=== PATIENT | female | born 1970 | race Hispanic/Latino ===

== ENCOUNTER 2021-02-28 15:07 | Outpatient (CLI) | payer BC | END 2021-02-28 15:08 | disposition home or self-care (01) | LOC: BICRAD 15:07 | PROVIDERS: ATTEND Family Medicine | DX: M25.511 Pain in right shoulder (principal); M54.50 Low back pain, unspecified | CPT/HCPCS: 72100 ==

== ENCOUNTER 2021-02-28 15:30 | Outpatient (CLI) | payer BC | END 2021-02-28 15:31 | disposition home or self-care (01) | LOC: BICMAMMO 15:30 | PROVIDERS: ATTEND Family Medicine | DX: Z12.31 Encounter for screening mammogram for malignant neoplasm of breast (principal) | CPT/HCPCS: 77063; 77067 ==

== ENCOUNTER 2023-03-08 06:01 | Emergency (ER) | payer BC ==
[2023-03-08 06:30] LABS: #Eosinphils 0.1 thou/uL (0.0-0.7); #Monocytes 0.3 thou/uL (0.11-0.59); #Neutrophils 3.6 thou/uL (1.40-6.50); %Basophils 0.4 % (0.0-1.0); %Eosinophils 1.9 % (0.0-10.0); %Lymphocytes 21.2 % (21.0-51.0); %Monocytes 6.4 % (0.0-10.0); %Neutrophils 69.9 % (42.0-75.0); Hematocrit 45.4 % (36.0-47.0); Hemoglobin 15.7 g/dL (12.0-16.0); Mean Corpuscular HGB CONC 34.6 g/dL (32.0-36.0); Mean Corpuscular Hemoglobin 31.2 pg (27.0-31.0); Mean Corpuscular Volume 90.1 fl (78.0-98.0); Mean Platelet Volume 9.3 fL (7.4-10.4); Platelet Count 255 10x3/uL (130-400); Red Blood Cell (RBC) Count 5.04 mill/uL (4.20-5.40); White Blood Cell (WBC) Count 5.2 10x3/uL (4.8-10.8)
[2023-03-08 06:52] LABS: ALT (SGPT) 40 U/L (8-55); AST (SGOT) 32 U/L (5-34); Albumin 4.2 g/dL (3.5-5.0); Alkaline Phosphatase 82 U/L (40-110); Anion Gap 12 mmol/L (10-20); BUN (Urea Nitrogen) 16 mg/dL (9.8-20.1); Bilirubin, Total 0.5 mg/dL (0.2-1.2); Calc. Creatinine Clearance 0 mL/min (70-130); Calcium 9.5 mg/dL (7.8-10.44); Carbon Dioxide 26 mmol/L (22-29); Chloride 106 mmol/L (98-107); Estimated GFR 89; Globulin 3.7 g/dL (2.4-3.5); Glucose 104 mg/dL (70-105); Potassium 3.7 mmol/L (3.5-5.1); Protein, Total 7.9 g/dL (6.0-8.3); Sodium 140 mmol/L (136-145)
[2023-03-08 06:56] LABS: Troponin I Less than 0.010 ng/mL (< 0.028)
[2023-03-08 10:09] LABS: Troponin I Less than 0.010 ng/mL (< 0.028)
== END 2023-03-08 11:06 | disposition home or self-care (01) ==
LOC: ERS 06:01
DX: R07.2 Precordial pain (principal)
CPT/HCPCS: 36415; 71045; 80053; 84484; 85025; 93005; 94760

== ENCOUNTER 2023-11-12 12:46 | Outpatient (CLI) | payer BC | END 2023-11-12 12:47 | disposition home or self-care (01) | LOC: BICMAMMO 12:46 | PROVIDERS: ATTEND Family Medicine | DX: Z12.31 Encounter for screening mammogram for malignant neoplasm of breast (principal); Z80.3 Family history of malignant neoplasm of breast | CPT/HCPCS: 77063; 77067 ==

== ENCOUNTER 2023-11-15 10:39 | Outpatient (CLI) | payer BC | END 2023-11-15 10:40 | disposition home or self-care (01) | LOC: ULT 10:39 | PROVIDERS: ATTEND Family Medicine | DX: M54.2 Cervicalgia (principal) | CPT/HCPCS: 76999 ==